=== PATIENT | male | born 1995 | race African-American/Black ===

== ENCOUNTER 2023-08-27 12:22 | Emergency (ER) | payer OTHER, SELFPAY ==
[2023-08-27 12:34] VITALS: BP 140/101; PULSE 95; RESP 18; TEMP 36.8; O2SAT 97; BMI 29.4
--- NOTE | 2023-08-27 12:48 | ED.PSYCH ---
HPI - Psych General Chief Complaint: Psychiatric Symptoms Stated Complaint: med clearance/ Time Seen by Provider: 08/27/23 12:45 Source: patient Mode of arrival: Ambulatory History of Present Illness HPI Narrative: Patient brought here [place] [facility] [place] [facility]. [place] base has concerns of patient's behavior, has been expressing paranoid thoughts. Thinking he is being spite on. Thinking someone has been stealing his money. He is to be transferred to [facility] in [place] today after medical clearance here. Chief officer is here at bedside. Patient denies any SI or HI. He states he has been sleeping very well. Has not been losing sleep. Does have pressured speech with tangential pattern and flight of ideas. He denies any previous history of schizophrenia or mental health issues or bipolar. Denies any drugs or alcohol abuse Related Data Home Medications Medication Instructions Recorded Confirmed No Known Home Medications 08/27/23 08/27/23 Allergies Allergy/AdvReac Type Severity Reaction Status Date / Time No Known Drug Allergies Allergy Verified 08/27/23 12:34 Review of Systems Review of Systems Narrative: GENERAL: negative chills, fatigue, malaise, fever, sweats. HEENT: negative sinus pain, ear pain, sore throat RESPIRATORY: negative dyspnea, cough CARDIOVASCULAR: negative chest pain, palpitations GASTROINTESTINAL: negative nausea, vomiting, abdominal pain : negative dysuria, frequency, hematuria MUSCULOSKELETAL: negative muscle or bony pain SKIN: negative rash, skin lesions NEUROLOGIC: negative weakness, numbness PSYCH: Negative SI ham[place] HI. Negative auditory or visual hallucinations. Positive delusions ROS Unobtainable: All systems reviewed & are unremarkable except as noted in HPI and below Patient History Social History Smoking Status: Current every day smoker Smoking Status: Current every day smoker tobacco type: cigarettes alcohol intake frequency: a few times a month Substance Use Type: does not use Exam Narrative Exam Narrative: GENERAL: in no distress, not toxic not dyspneic HEAD: Normocephalic. EYES: Pupils equal round ENT: Mucous membranes moist. NECK: Trachea midline. CARDIOVASCULAR: Regular rate and rhythm RESPIRATORY: Clear to auscultation. Breath sounds equal bilaterally. No wheezes, rales, or rhonchi. GASTROINTESTINAL: Abdomen soft, non-tender EXTREMITIES: No gross deformities. BACK: No flank tenderness. NEURO: AOx4. SKIN: Warm and dry PSYCH: Is anxious, is cooperative, has rapid pressured speech. Flight of ideas present as well. Initial Vital Signs Initial Vital Signs: Vital Signs Temperature 98.3 F 08/27/23 12:34 Pulse Rate 95 H 08/27/23 12:34 Respiratory Rate 18 08/27/23 12:34 Blood Pressure 140/101 H 08/27/23 12:34 Pulse Oximetry 97 08/27/23 12:34 Oxygen Delivery Method Room Air 08/27/23 12:34 Course Orders Ordered: Discontinued Medications Nicotine (Nicotine 21 Mg Patch) 21 mg TOP NOW ONE Stop: 08/27/23 16:04 Last Admin: 08/27/23 16:23 Dose: Not Given Documented By: SB Vital Signs Vital signs: Vital Signs - 8 hr 08/27/23 12:34 Temperature 98.3 F Pulse Rate 95 H Respiratory Rate 18 Blood Pressure 140/101 H Pulse Oximetry 97 Oxygen Delivery Method Room Air MDM - Psych Lab Data 08/27/23 12:50 08/27/23 12:50 Labs: Lab Results 08/27/23 08/27/23 08/27/23 Range/Units 12:50 12:54 13:53 WBC 4.8 (4.5-11.0) X10^3/uL RBC 4.81 (4.5-5.9) X10^6/uL Hgb 14.4 (13.5-17.5) g/dL Hct 42.3 (41-53) % MCV 87.9 (80-100) fL MCH 30.0 (26-34) PG MCHC 34.1 (30-36) % RDW 13.8 (11.6-14.8) % Plt Count 345 (150-400) X10^3/uL Neut % (Auto) 61.5 (50-75) % Lymph % (Auto) 26.7 (25-40) % [place] % (Auto) 9.9 (3-14) % Eos % (Auto) 1.0 L (2-4) % Baso % (Auto) 0.9 (0-2) % Neut # (Auto) 3000 (0275-9183) /uL Lymph # (Auto) 1300 (3031-8287) /uL [place] # (Auto) 500 (0-900) /uL Eos # (Auto) 0 (0-450) /uL Baso # (Auto) 0 (0-100) /uL Sodium 137 (137-145) mmol/L Potassium 4.0 (3.4-5.1) mmol/L Chloride 103 (98-107) mmol/L Carbon Dioxide 26 (22-32) mmol/L BUN 8 L (9-20) mg/dL Creatinine 0.99 (0.66-1.25) mg/dL Estimated GFR > 60 (>60) mL/min BUN/Creatinine Ratio 8.1 (6-22) Glucose 104 H (70-100) mg/dL Calcium 9.3 (8.4-10.2) mg/dL Total Bilirubin 0.9 (0.2-1.3) mg/dL AST 38 (17-59) IU/L ALT 30 (<50) IU/L Alkaline Phosphatase 72 (38-126) U/L Total Protein 7.5 (6.3-8.2) g/dL Albumin 4.4 (3.5-5.0) g/dL Globulin 3.1 (1.7-4.1) g/dL Albumin/Globulin Ratio 1.4 (1.0-2.8) TSH 0.58 (0.47-4.68) uIU/mL Urine Color Yellow Urine Appearance Clear Urine pH 6.0 (4.5-8.0) Ur Specific [place] 1.010 (1.000-1.035) Urine Protein Negative (Negative) Urine Glucose (UA) Negative (Negative) g/dL Urine Ketones Negative (NEGATIVE) Urine Occult Blood Negative (Negative) Urine Nitrate Negative (Negative) Urine Bilirubin Negative (NEGATIVE) Urine Urobilinogen 1.0 (0.2) E.U./dL Ur Leukocyte Esterase Negative (NEGATIVE) Urine RBC None seen (0-5/HPF) Urine WBC None seen (0-5/HPF) Ur Squamous Epith Cells None seen (0-5/HPF) Urine Bacteria None seen (None) Ur Culture Indicated? Cult not indicated Salicylates < 1.0 (<20) mg/dL U Opiates 300ng/mL cut Negative (Negative) Ur Oxycodone Screen Negative (Negative) Urine Methadone Screen Negative (Negative) Acetaminophen < 10 (10-30) ug/mL Ur Barbiturates Screen Negative (Negative) U Tricyclic Antidepress Negative (Negative) Ur Phencyclidine Scrn Negative (Negative) Ur Amphetamines Screen Negative (Negative) U Methamphetamines Scrn Negative (Negative) Ur MDMA Scrn (Ecstasy) Negative (Negative) U Benzodiazepines Scrn Negative (Negative) Urine Cocaine Screen Negative (Negative) U Marijuana (THC) Screen Negative (Negative) Ethyl Alcohol < 10 ( - 10) mg/dL SARS-CoV-2 (PCR) Negative (Negative) MDM Narrative Medical decision making narrative: Patient brought here from the [facility]. The base has concerns of patient's behavior, has been expressing paranoid thoughts. Thinking he is being spite on. Thinking someone has been stealing his money. He is to be transferred to [facility] in [place] today after medical clearance here. Chief officer is here at bedside. Patient denies any SI or HI. He states he has been sleeping very well. Has not been losing sleep. Does have pressured speech with tangential pattern and flight of ideas. He denies any previous history of schizophrenia or mental health issues or bipolar. Denies any drugs or alcohol abuse After history and exam social work consult, CBC CMP drug screen alcohol Tylenol TSH MDM CC: Mental health evaluation Complicating co-morbidities: None Data collected from: Patient and administration from the [facility] Medical records reviewed: No recent visit for this complaint Differential considered: Includes but not limited to bipolar schizophrenia depression anxiety Exam documented above, pertinent findings include: Pressured speech flight of ideas Lab Test results independently reviewed as above. Pertinent findings: WBC 4.8 hemoglobin 14.4 sodium 137 potassium 4.0 BUN 8 AST 38 ALT 30 TSH 0.58 urinalysis negative ketones negative nitrate Drug screen negative Tylenol negative aspirin negative alcohol negative COVID negative Consultations: 3:34 p.m.. Spoke with [facility], Dr. Lizarraga, he will accept patient Treatments: None required Re-evaluations: 3:35 p.m.. Patient has been cooperative. Chief officer has been present during course of stay. Patient will be transferred to [facility] Discussion: Appropriate for transfer. Patient has been cooperative during course of stay. Receiving Hospital provider reviewed with me patient is findings. Agrees patient should be transferred and admitted. Chief officer will be accompanying patient during transfer to [facility] Diagnosis: Acute psychosis Discharge Plan Departure Patient Disposition: Xfer Psychiatric Hosp Clinical Impression: Acute psychosis Prescriptions: No Action No Known Home Medications Referrals: Provider,Juju PEREZ [Primary Care Provider] -
[2023-08-27 12:58] LABS: Add Manual Diff / Slide Review NO; Basophils Absolute Auto 0 /uL (0-100); Basophils Percent Auto 0.9 % (0-2); Eosinophils Absolute Auto 0 /uL (0-450); Hematocrit 42.3 % (41-53); Hemoglobin 14.4 g/dL (13.5-17.5); Lymphocytes Absolute Auto 1300 /uL (1100-4500); Lymphocytes Percent Auto 26.7 % (25-40); Mean Corpuscular HGB Conc 34.1 % (30-36); Mean Corpuscular Volume 87.9 fL (80-100); Monocytes Absolute Auto 500 /uL (0-900); Monocytes Percent Auto 9.9 % (3-14); Neutrophils Absolute Auto 3000 /uL (1500-7000); Neutrophils Percent Auto 61.5 % (50-75); Platelet Count 345 X10^3/uL (150-400); Red Blood Cell Count 4.81 X10^6/uL (4.5-5.9); Red Cell Distribution Width 13.8 % (11.6-14.8); White Blood Cell Count 4.8 X10^3/uL (4.5-11.0)
[2023-08-27 13:15] LABS: Acetaminophen < 10 ug/mL (10-30); Alanine Aminotransferase 30 IU/L (<50); Albumin 4.4 g/dL (3.5-5.0); Albumin Globulin Ratio 1.4 (1.0-2.8); Alkaline Phosphatase 72 U/L (38-126); Aspartate Aminotransferase 38 IU/L (17-59); BUN Creatinine Ratio 8.1 (6-22); Bilirubin Total 0.9 mg/dL (0.2-1.3); Blood Urea Nitrogen 8 mg/dL (9-20); Calcium 9.3 mg/dL (8.4-10.2); Carbon Dioxide 26 mmol/L (22-32); Chloride 103 mmol/L (98-107); Estimated Glomerular Filt Rate > 60 mL/min (>60); Ethanol (ETOH) < 10 mg/dL; Globulin 3.1 g/dL (1.7-4.1); Glucose 104 mg/dL (70-100); HEMOLYSIS < 15 (0-50); Salicylate < 1.0 mg/dL (<20); Sodium 137 mmol/L (137-145); Total Protein 7.5 g/dL (6.3-8.2)
[2023-08-27 13:16] LABS: COVID19 -Nasal RAPID Negative (Negative)
[2023-08-27 13:49] LABS: TSH w/ Reflex to FT4 0.58 uIU/mL (0.47-4.68)
[2023-08-27 14:04] LABS: Appearance Urine UA CLEAR; Bilirubin Urine UA NEGATIVE (NEGATIVE); Color Urine UA YELLOW; Glucose Urine UA NEGATIVE (Negative); Ketones Urine UA NEGATIVE (NEGATIVE); Leukocyte Esterase Urine UA NEGATIVE (NEGATIVE); Nitrite Urine UA NEGATIVE (Negative); Occult Blood Urine UA NEGATIVE (Negative); Protein Urine UA NEGATIVE (Negative)
[2023-08-27 14:24] LABS: Bacteria Urine None Seen; Culture Indicated Urine Cult Not Indicated; RBC Urine None Seen (0-5/HPF); Squamous Epithelial Cell Urine None Seen (0-5/HPF); UR Morphine/Opiate cutoff 300 Negative (Negative); Ur Creatinine Normal (Normal); Ur Specific Gravity Normal (Normal); Urine Amphetamines Negative (Negative); Urine Barbiturates Negative (Negative); Urine Benzodiazepines Negative (Negative); Urine Cocaine Negative (Negative); Urine MDMA Negative (Negative); Urine Methadone Negative (Negative); Urine Methamphetamines Negative (Negative); Urine Oxycodone Negative (Negative); Urine Phencyclidine Negative (Negative); Urine Tetrahydrocannabinol Negative (Negative); Urine Tricyclic Antidepressant Negative (Negative); Urine pH Normal (Normal); WBC Urine None Seen (0-5/HPF)
--- NOTE | 2023-08-27 16:01 | CM.SWNOTE ---
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 WIRELESS WATCHER receives call from [facility] stating that they are bringing a patient via [facility] for medical clearance to transport to [facility]. It is reported that patient has presented with increased paranoia and patient has been concerned he is being tracked on his phone and devices and concern that he has been hacked and his money is missing. It is reported that patient's spouse called patient's commanding officers reporting this concern. There is no reported history of substance use, no known MH hx. It is reported that patient is required to go to [facility] due to concern for r/o substance use and/or psychotic break. It is reported that this transport is required due to concern for fitness for duty. WIRELESS WATCHER asks if patient can be transported directly to [facility] and it is reported to WIRELESS WATCHER that [facility] requests medical clearance for transfer. WIRELESS WATCHER is informed that patient's chief of command is coming to be with patient. Patient is agreeable to medical clearance. WIRELESS WATCHER is involved to insure that the transport goes smoothly. RNs and ED provider determine that patient denies SI and HI. ED provider observes patient to present with pressured tansgential speech, with flight of ideas. Patient is negative for all substances. WIRELESS WATCHER was informed by RNs that patient is aware he is going to [facility]. WIRELESS WATCHER informs chief/commanding officer that the ED is not able to stop patient if he tries to leave and requests that they stay with patient. Upon medical clearance, WIRELESS WATCHER calls [facility] regarding patient and faxes clinicals for review. ED provider discusses patient's with [facility] provider Dr. Rojas, patient is accepted by this provider. S transport is set up for [id number]. When patient is informed about patient's acceptance to [facility] patient presents with concern about this transport. WIRELESS WATCHER and primer charger explain to chief that S will not be able to stop patient if he tries to leave and patient may need to be accompanied by a commanding officer or chief. Plan: patient to transfer to [facility] via [facility] with support from commanding officer this evening. CARLITA Montemayor
[2023-08-27 17:02] VITALS: BP 126/81; PULSE 69; RESP 18; O2SAT 99
== END 2023-08-27 17:05 ==
PROVIDERS: Emergency Provider Emergency Medicine
DX: F23 Brief psychotic disorder (principal); Z11.52 Encounter for screening for COVID-19
CPT/HCPCS: 36415; 80053; 80305; 80320; 80329; 81001; 84443; 85025; 87635; 99283; C9803; G0480